=== PATIENT | male | born 1990 | race Caucasian/White ===

== ENCOUNTER 2024-04-20 02:31 | Emergency (ER) | payer OTHER ==
[~2024-04-20] VITALS: Ht 165.1 cm; Wt 61.6 kg
[2024-04-20] MEDS ORDERED: TRAMADOL HCL 50 MG TAB PO ONE (02:45)
[2024-04-20] MEDS ORDERED: MELOXICAM7.5 MG PO (03:03)
[2024-04-20] MEDS ORDERED: TRAMADOL HCL 50 MG HOME.PACK PO ONE (03:15)
[2024-04-20 03:22] VITALS: BP 142/105
== END 2024-04-20 03:22 | disposition home or self-care (01) ==
LOC: ED 02:31
DX: S62.521A Displaced fracture of distal phalanx of right thumb, initial encounter for closed fracture (principal); V18.0XXA Pedal cycle driver injured in noncollision transport accident in nontraffic accident, initial encounter
CPT/HCPCS: 73130; 99283; A9270

== ENCOUNTER 2024-04-20 05:33 | Emergency (ER) | payer OTHER ==
[~2024-04-20] VITALS: Ht 165.1 cm; Wt 61.8 kg
[~2024-04-20 05:33] MED LIST: MELOXICAM7.5 MG PO
--- OUTSIDE RECORDS SUMMARY | 2024-04-20 05:40 | XMS ---
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 Gordo has no Care Guidelines for this patient. [facility]12 MO.) [facility] NOTE: Visits indicate total known visits. ED/C VISIT TRACKING (12 MO.) [facility]24 05[facility] COMPLAINT: - HAND PAIN 04/20/2024 02:33 [facility] [place] TYPE: Emergency COMPLAINT: - HAND INJURY INPATIENT VISIT TRACKING (12 MO.) No inpatient visits to display in this time frame [id number]
[2024-04-20] MEDS ORDERED: KETOROLAC TROMETHAMINE 30 MG/ML VIAL IM ONE (06:00)
[2024-04-20] MEDS ORDERED: KETOROLAC TROMETHAMINE 60 MG/2 ML VIAL IM ONE (06:00)
[2024-04-20 06:02] VITALS: BP 138/97
== END 2024-04-20 06:02 | disposition other institution, planned readmission (95) ==
LOC: ED 05:33
DX: M79.646 Pain in unspecified finger(s) (principal); Z53.29 Procedure and treatment not carried out because of patient's decision for other reasons
CPT/HCPCS: 99282

== ENCOUNTER 2024-11-16 01:11 | Emergency (ER) | payer OTHER ==
[~2024-11-16] VITALS: Ht 165.1 cm; Wt 61.5 kg
[2024-11-16] MEDS ORDERED: ELIMITE60 GM TOP (01:44)
[2024-11-16 01:50] VITALS: BP 129/89
[2024-11-17] MEDS ORDERED: EMVERM100 MG PO (04:32)
== END 2024-11-16 01:50 | disposition home or self-care (01) ==
LOC: ED 01:11
DX: B86 Scabies (principal)
CPT/HCPCS: 99282

== ENCOUNTER 2024-11-17 03:52 | Emergency (ER) | payer OTHER ==
[~2024-11-17] VITALS: Ht 165.1 cm; Wt 60.0 kg
[~2024-11-17 03:52] MED LIST changes: +ELIMITE60 GM TOP
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
[2024-11-17] MEDS ORDERED: EMVERM100 MG PO (04:32)
[2024-11-17 04:45] VITALS: BP 138/103
== END 2024-11-17 04:45 | disposition home or self-care (01) ==
LOC: ED 03:52
DX: B82.0 Intestinal helminthiasis, unspecified (principal); Z79.899 Other long term (current) drug therapy
CPT/HCPCS: 99282

== ENCOUNTER 2025-01-08 20:14 | Emergency (ER) | payer OTHER ==
[~2025-01-08] VITALS: Ht 165.1 cm; Wt 60.0 kg
[~2025-01-08 20:14] MED LIST changes: +EMVERM100 MG PO
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
[2025-01-08 20:27] VITALS: BP 134/94
== END 2025-01-08 20:27 | disposition other institution, planned readmission (95) ==
LOC: ED 20:14
DX: F15.10 Other stimulant abuse, uncomplicated (principal); F22 Delusional disorders; Z53.29 Procedure and treatment not carried out because of patient's decision for other reasons; Z79.899 Other long term (current) drug therapy
CPT/HCPCS: 99283